=== PATIENT | female | born 1965 | race African-American/Black ===

== ENCOUNTER 2025-05-08 11:54 | Inpatient (IN) | payer OTHER ==
[~2025-05-08] VITALS: Ht 160 cm; Wt 70.3 kg
[2025-05-08] MEDS ORDERED: AZITHROMYCIN 500MG/250ML 250 ML IV ONE (12:15)
[2025-05-08] MEDS: SODIUM CHLORIDE 0.9% (SEPSIS BOLUS) IV ONE (12:35)
[2025-05-08] MEDS: CEFTRIAXONE 1GM/50ML 50 ML IV ONE (13:04)
[2025-05-08] MEDS: ACETAMINOPHEN 325MG TABLET PO ONE (13:07)
[2025-05-08] MEDS: KETOROLAC 15MG/ML VIAL IV ONE (13:07)
[2025-05-08 13:29] LABS: HEMATOCRIT. 35.6 % (36.0-48.0); HEMOGLOBIN. 11.6 g/dL (12.0-16.0); MEAN PLATELET VOLUME 8.6 fl (7.4-10.4); PLATELET 156 x1000/uL (130-400); RED BLOOD CELL COUNT 4.30 mill/uL (4.2-5.4); RED CELL DISTRIBUTION WIDTH 14.6 % (11.6-14.6)
[2025-05-08 13:35] LABS: INR 1.0
[2025-05-08 13:59] LABS: BAND% 18.0 % (1.0-6.0); LYMPHOCYTES % MANUAL 8.0 % (20.0-60.0); MONOCYTES % MANUAL 5.0 % (2.0-8.0); NEUTROPHILS % MANUAL 69.0 % (45.0-75.0); PLATELET ESTIMATE NORMAL
[2025-05-08 14:03] LABS: CREATININE 1.3 mg/dL (0.6-1.0); UREA NITROGEN BLOOD 12 mg/dL (9-23)
[2025-05-08 14:04] LABS: ASPARTATE AMINOTRANSFERASE 66 IU/L (<34)
[2025-05-08 14:05] LABS: BILIRUBIN DIRECT 0.3 mg/dL (<=3.0); BILIRUBIN TOTAL 0.8 mg/dL (0.1-1.0); PROTEIN TOTAL 7.5 g/dL (6.0-8.3)
[2025-05-08 14:14] LABS: TROPONIN I HIGH SENSITIVITY 38 ng/L (3.0-34)
[2025-05-08] MEDS: AZITHROMYCIN 500MG/250ML 250 ML IV NR (14:38)
[2025-05-08 15:55] LABS: TROPONIN I HIGH SENSITIVITY 42 ng/L (3.0-34)
[2025-05-08] MEDS ORDERED: PIPERACILLIN/TAZOBACTAM 3.375 G in DEXTROSE 5% WATER 50 ML IV SCH (18:15)
[2025-05-08] MEDS ORDERED: ONDANSETRON HCL 4MG/2ML INJ IV PRN (18:15)
[2025-05-08] MEDS ORDERED: CLONIDINE 0.1MG TABLET PO PRN (18:15)
[2025-05-08] MEDS ORDERED: DOCUSATE SODIUM 100MG CAPSULE PO PRN (18:15)
[2025-05-08 18:35] VITALS: BP 101/63; PULSE 93; RESP 16; TEMP 36.418
[2025-05-08 20:00] VITALS: BP 97/56; PULSE 100; RESP 18; TEMP 36.4; O2SAT 93
[2025-05-08] MEDS: VANCOMYCIN 1G PREMIX 200 ML IV NR (22:09)
[2025-05-08] MEDS: PIPERACILLIN/TAZO 3.375G/50ML IV SCH (22:57)
[2025-05-08] MEDS: MELATONIN 3MG TABLET PO SCH (23:23)
[2025-05-08] MEDS: HYDROCODONE/ACETAMINOPHEN 5/325MG TABLET PO PRN (23:31)
[2025-05-08 23:58] LABS: CLARITY URINE CLEAR (CLEAR); COLOR URINE DARK YELLOW (YELLOW); GLUCOSE URINE NEGATIVE (NEGATIVE); KETONES URINE NEGATIVE (NEGATIVE); LEUKOCYTE ESTERASE URINE NEGATIVE (NEGATIVE); NITRITE URINE NEGATIVE (NEGATIVE); OCCULT BLOOD URINE 1+ (NEGATIVE); PH URINE 6.0 (4.5-8.0); PROTEIN URINE 2+ (NEGATIVE); SPECIFIC GRAVITY URINE 1.021 (1.005-1.030); UROBILINOGEN URINE 2.0 E.U./dL (0.2-1.0)
[2025-05-09] VITALS (7 sets, daily range): BP systolic 88–106; BP diastolic 62–75; PULSE 87–119; RESP 16–20; TEMP 36.8–39.4; O2SAT 92–98
[2025-05-09 02:13] LABS: *AMPHETAMINES SCREEN URINE NEGATIVE (NEGATIVE); *BARBITURATES SCREEN URINE NEGATIVE (NEGATIVE); *BENZODIAZEPINES SCREEN URINE NEGATIVE (NEGATIVE); *COCAINE SCREEN URINE NEGATIVE (NEGATIVE); CANNABINOID URINE SCREEN NEGATIVE (NEGATIVE); ECSTASY MDMA SCREEN URINE NEGATIVE (NEGATIVE); METHADONE URINE SCREEN NEGATIVE (NEGATIVE); OPIATES URINE SCREEN NEGATIVE (NEGATIVE); PHENCYCLIDINE URINE SCREEN NEGATIVE (NEGATIVE)
[2025-05-09 04:56] LABS: SQUAMOUS EPITHELIAL CELL URINE FEW /lpf (RARE/1+)
[2025-05-09 04:58] LABS: RBC URINE 0-2 /hpf (0-2)
[2025-05-09 05:00] LABS: BACTERIA URINE TRACE
[2025-05-09 07:34] LABS: CREATININE 1.2 mg/dL (0.6-1.0); UREA NITROGEN BLOOD 14.0 mg/dL (9-23)
[2025-05-09 07:37] LABS: HEMATOCRIT. 33.4 % (36.0-48.0); HEMOGLOBIN. 10.9 g/dL (12.0-16.0); MEAN PLATELET VOLUME 8.6 fl (7.4-10.4); PLATELET 146 x1000/uL (130-400); RED BLOOD CELL COUNT 4.05 mill/uL (4.2-5.4); RED CELL DISTRIBUTION WIDTH 14.5 % (11.6-14.6)
[2025-05-09] MEDS: AZITHROMYCIN 500 MG TABLET PO SCH (09:44)
[2025-05-09] MEDS: ACETAMINOPHEN 325MG TABLET PO PRN ×2 (09:45→23:53)
[2025-05-09] MEDS: VANCOMYCIN 500MG PREMIX 100 ML IV SCH (09:45)
[2025-05-09] MEDS ORDERED: GUAIFENESIN 200MG/10ML SUGAR FREE UDC PO PRN (10:15)
[2025-05-09] MEDS: IPRATROPIUM/ALBUTEROL 0.5-3(2.5)MG/3ML NEB HHN PRN (10:37)
[2025-05-09] MEDS ORDERED: DEXT 5%/0.9% NACL 1,000 ML IV SCH (12:15)
[2025-05-09] MEDS ORDERED: DEXTROSE 50% WATER 50ML SYRINGE IV PRN (12:15)
[2025-05-09 12:33] LABS: INFLUENZA TYPE A Presumptive Negative (Pres. Neg.); INFLUENZA TYPE B Presumptive Negative (Pres. Neg.)
[2025-05-09 12:34] LABS: RESPIRATORY SYNCYTIAL VIRUS Not Detected (Not Detectd)
[2025-05-09] MEDS ORDERED: SODIUM CHLORIDE 0.45% 500 ML IV SCH (12:45)
[2025-05-09] MEDS: BLOOD SUGAR DIAGNOSTIC STRIP TEST SCH (12:54)
[2025-05-09] MEDS: ENOXAPARIN 40MG/0.4ML SYR SUBCUT SCH (13:31)
[2025-05-09] MEDS: INSULIN LISPRO 100 UNITS/ML SUBCUT SCH (13:32)
[2025-05-09 14:10] LABS: BG FRACTION INSPIRED OXYGEN 21; BG SAMPLE SITE RIGHT BRACHIAL; BG VENT MODE ROOM AIR
[2025-05-09 14:11] LABS: BG BASE EXCESS -1.5 mmol/L (-2.0-3.0); BG CARBOXYHEMOGLOBIN 0.6 % (0.5-1.5); BG DEOXYHEMOGLOBIN 14.6 % (0.0-5.0); BG HCO3 ACT 21.8 mmol/L (21.0-28.0); BG METHEMOGLOBIN 0.1 % (0.5-1.5); BG OXYGEN SATURATION 85.3 % (94.0-98.0); BG OXYHEMOGLOBIN 84.7 % (94.0-98.0); BG PCO2 32.6 mmHg (32.0-45.0); BG PH 7.443 (7.350-7.450); BG PO2 45.8 mmHg (83.0-108.0); BG TOTAL HEMOGLOBIN 13.5 g/dL (12.0-16.0)
[2025-05-09] MEDS ORDERED: NALOXONE HCL 0.4MG/ML VIAL IV PRN (14:15)
[2025-05-09] MEDS: BENZONATATE 100MG CAPSULE PO SCH (14:51)
[2025-05-09] MEDS: DEXAMETHASONE 4MG/ML 1ML VIAL IV SCH (14:52)
[2025-05-09] MEDS: DEXT 5%/0.45% NACL 1000ML 1,000 ML IV SCH (14:52)
[2025-05-09] MEDS ORDERED: TIRZ10PE (20:12)
[2025-05-09] MEDS ORDERED: VITA250012 MT (20:13)
[2025-05-09] MEDS ORDERED: DEXT10TA4 MT (20:14)
[2025-05-09] MEDS ORDERED: ATOR40TA70 MT (20:15)
[2025-05-09] MEDS ORDERED: FAMO20TA8 PO (20:19)
[2025-05-09] MEDS ORDERED: ZOLP5TAB18 PO (20:19)
[2025-05-09] MEDS ORDERED: AMLO10TA80 MT (20:20)
[2025-05-09] MEDS: IPRATROPIUM/ALBUTEROL 0.5-3(2.5)MG/3ML NEB HHN SCH (20:53)
[2025-05-09 23:26] LABS: LYMPHOCYTES % MANUAL 11.0 % (20.0-60.0); MONOCYTES % MANUAL 4.0 % (2.0-8.0); NEUTROPHILS % MANUAL 85.0 % (45.0-75.0); PLATELET ESTIMATE NORMAL
[2025-05-09] MEDS ORDERED: IOHEXOL-350 100 ML BOTTLE ONE (23:32)
[2025-05-10] VITALS (9 sets, daily range): BP systolic 90–129; BP diastolic 54–86; PULSE 77–116; RESP 18–22; TEMP 36.4–38.9; O2SAT 93–98
[2025-05-10 06:19] LABS: BASOPHILS % 0.1 % (0.0-2.0); EOSINOPHILS % 0.5 % (0.0-5.0); HEMATOCRIT. 34.1 % (36.0-48.0); HEMOGLOBIN. 11.0 g/dL (12.0-16.0); LYMPHOCYTES % 11.2 % (20.0-50.0); MEAN PLATELET VOLUME 9.0 fl (7.4-10.4); MONOCYTES % 3.6 % (2.0-8.0); NEUTROPHILS % 84.6 % (40.0-76.0); PLATELET 181 x1000/uL (130-400); RED BLOOD CELL COUNT 4.10 mill/uL (4.2-5.4); RED CELL DISTRIBUTION WIDTH 15.0 % (11.6-14.6)
[2025-05-10 06:23] LABS: TRIGLYCERIDE 175.0 mg/dL (0-150)
[2025-05-10 06:24] LABS: LDL CHOLESTEROL 22.0 mg/dL (5-100)
[2025-05-10 06:27] LABS: CREATININE 1.2 mg/dL (0.6-1.0); UREA NITROGEN BLOOD 12.0 mg/dL (9-23)
[2025-05-10] MEDS: PANTOPRAZOLE 40MG DR TABLET PO SCH (08:40)
[2025-05-10] MEDS: GUAIFENESIN-DM 200MG-20MG/10ML UDC PO PRN (12:39)
[2025-05-10] MEDS: GUAIFENESIN/CODEINE 200-20MG/10ML UDC PO PRN (15:23)
[2025-05-10] MEDS: VANCOMYCIN 1G PREMIX 200 ML IV SCH (21:28)
[2025-05-11] VITALS (8 sets, daily range): BP systolic 104–124; BP diastolic 71–90; PULSE 91–113; RESP 18–20; TEMP 36.2–37; O2SAT 93–100
[2025-05-11 10:48] LABS: BG BASE EXCESS -2.5 mmol/L (-2.0-3.0); BG CARBOXYHEMOGLOBIN 0.3 % (0.5-1.5); BG DEOXYHEMOGLOBIN 6.5 % (0.0-5.0); BG FRACTION INSPIRED OXYGEN 21; BG HCO3 ACT 20.5 mmol/L (21.0-28.0); BG METHEMOGLOBIN 0.3 % (0.5-1.5); BG OXYGEN SATURATION 93.5 % (94.0-98.0); BG OXYHEMOGLOBIN 92.9 % (94.0-98.0); BG PCO2 29.5 mmHg (32.0-45.0); BG PH 7.459 (7.350-7.450); BG PO2 66.1 mmHg (83.0-108.0); BG SAMPLE SITE RIGHT RADIAL; BG TOTAL HEMOGLOBIN 10.9 g/dL (12.0-16.0); BG VENT MODE ROOM AIR
[2025-05-11] MEDS: INSULIN GLARGINE 100 UNITS/ML SUBCUT SCH (10:51)
[2025-05-12 00:16] VITALS: BP 117/78; PULSE 89; RESP 19; TEMP 36.4; O2SAT 98
[2025-05-12 01:16] VITALS: PULSE 98; RESP 20
[2025-05-12 04:19] VITALS: BP 114/80; PULSE 78; RESP 17; TEMP 36.7; O2SAT 97
[2025-05-12 08:00] VITALS: BP 118/73; PULSE 97; RESP 18; TEMP 36.9; O2SAT 98
[2025-05-12] MEDS ORDERED: AZIT1PAC9 MT (10:32)
[2025-05-12] MEDS ORDERED: ALBU18HF2 IH (20:15)
== END 2025-05-12 10:00 | disposition left against medical advice (07) | DRG 871 ==
LOC: ER 11:54 → 7WST 16:02
PROVIDERS: ADMIT Family Medicine Adult Medicine; ATTEND Family Medicine Adult Medicine
DX: A41.9 Sepsis, unspecified organism (principal); J18.9 Pneumonia, unspecified organism; J96.01 Acute respiratory failure with hypoxia; U07.1 COVID-19; E87.1 Hypo-osmolality and hyponatremia; D50.9 Iron deficiency anemia, unspecified; E11.9 Type 2 diabetes mellitus without complications; N17.9 Acute kidney failure, unspecified; I10 Essential (primary) hypertension; Z53.29 Procedure and treatment not carried out because of patient's decision for other reasons
CPT/HCPCS: 36415; 36600; 71045; 71275; 80048; 80061; 80076; 80202; 80305; 81003; 82375; 82533; 82805; 82962; 83036; 83605; 83880; 83930; 84145; 84443; 84484; 85025; 87420; 87426; 87804; 93005; 94070; 94640; 94664; 96365; 99291; A4606; J0456; J0696; J1100; J1650; J1815; J1885; J2543; J3373; J7030; Q9967